=== PATIENT | female | born 1955 | race Caucasian/White ===

== ENCOUNTER 2018-02-20 05:40 | Outpatient (CLI) | payer OTHER ==
[~2018-02-20] VITALS: Ht 165.1 cm; Wt 68.0 kg
[2018-02-20] MEDS ORDERED: OMEP20CA12 PO (12:51)
[2018-02-20] MEDS ORDERED: DULO30CA48 PO (12:51)
[2018-02-20] MEDS ORDERED: TURM538C PO (12:51)
== END 2018-02-20 13:01 | disposition home or self-care (01) ==
LOC: PREOP 05:40
PROVIDERS: ATTEND Surgery
DX: Z01.818 Encounter for other preprocedural examination (principal)

== ENCOUNTER 2018-03-04 06:47 | Day surgery (SDC) | payer OTHER ==
[~2018-03-04] VITALS: Ht 165.1 cm; Wt 68.0 kg
[~2018-03-04 06:47] MED LIST: DULO30CA48 PO; OMEP20CA12 PO; TURM538C PO
[2018-03-04] MEDS ORDERED: NS IV 500 ML 500 ML ONE (07:10)
[2018-03-04] MEDS ORDERED: NS IV 500 ML 500 ML IV PRN (07:10)
[2018-03-04] MEDS ORDERED: fentaNYL INJECTION 100 MCG/2 ML AMP IVP ONE (07:15)
[2018-03-04] MEDS ORDERED: HURRICAINE EXT TUBE (BENZOCAINE) XX PRN (07:15)
[2018-03-04] MEDS ORDERED: MIDAZOLAM 2 MG/2 ML (VERSED) VIAL IVP ONE (07:15)
[2018-03-04 07:26] VITALS: BP 143/80
[2018-03-04] MEDS ORDERED: MIDAZOLAM 2 MG/2 ML (VERSED) VIAL ONE ×4 (07:36→09:21)
[2018-03-04] MEDS ORDERED: fentaNYL INJECTION 100 MCG/2 ML AMP ONE (07:36)
[2018-03-04] MEDS ORDERED: HURRICAINE EXT TUBE (BENZOCAINE) ONE (07:37)
--- NOTE | 2018-03-04 09:12 | Conscious Sedation/ASA ---
Conscious Sedation Pre-Proced Time 09:12 ASA Score 2 For ASA 3 and 4: Consider anesthesia and medical clearance. Also, for patients with a history of failed moderate sedation consider anesthesia. Airway Lungs Heart ASA score ASA 1: a normal healthy patient ASA 2: a patient with a mild systemic disease (mid diabetes, controlled hypertension, obesity ASA 3: a patient with a severe systemic disease that limits activity (angina , COPD, prior Myocardial infarction) ASA 4: a patient with an incapacitating disease that is a constant threat to life (CHF, renal failure) ASA 5: a moribund patient not expected to survive 24 hrs. (ruptured aneurysm) ASA 6: a declared brain patient whose organs are being harvested. For emergent operations, add the letter E after the classification Mallampati Classification Grade 1 Sedation Plan Discussed options with patient/fam The patient is an appropriate candidate to undergo the planned procedure, sedation, and anesthesia. The patient immediately re-assessed prior to indication. NEFTALI RIDDLE MD Mar 04, 2018 09:12
--- NOTE | 2018-03-04 09:12 | History & Physicial ---
History of Present Illness History of Present Illness Reason for visit/HPI to undergo an upper endoscopy with colonoscopy regarding iron deficiency anemia. Previous history of peptic ulcers or than 30 years ago. No family history of colon cancer Date of Admission 03/04/18 Date Seen by a Provider: Mar 04, 2018 Time Seen by a Provider: 09:10 I consulted on this patient on 03/04/18 09:10 Attending Physician Neftali Riddle MD Admitting Physician Sung Zarate MD Consult Allergies and Home Medications Allergies Coded Allergies: amoxicillin (Verified Allergy, Mild, HIVES, 02/20/18) Home Medications Duloxetine HCl 30 Mg Capsule.dr, 30 MG PO DAILY, (Reported) Omeprazole 20 Mg Capsule.dr, 20 MG PO DAILY, (Reported) Turmeric Root Extract 538 Mg Capsule, 538 MG PO DAILY, (Reported) Patient Home Medication List Home Medication List Reviewed: Yes Past Cejsmyf-Ijyzga-Acsvky Hx Patient Social History Marrital Status: Employed/Student: employed Alcohol Use: Denies Use Recreational Drug Use: No Smoking Status: Never a Smoker Recent Foreign Travel: No Contact w/other who traveled: No Recent Hopitalizations: No Recent Infectious Disease Expo: No Immunizations Up To Date Tetanus Booster (TDap): Unknown Seasonal Allergies Seasonal Allergies: Yes Surgeries Gallbladder, Hysterectomy, Tonsillectomy Respiratory No Currently Using CPAP: No Currently Using BIPAP: No Cardiovascular No Neurological No Reproductive System Hx Reproductive Disorders: No Sexually Transmitted Disease: No HIV/AIDS: No Gastrointestinal Yes Gastroesophageal Reflux Musculoskeletal Yes Arthritis, Fibromyalgia HEENT History of HEENT Disorders: No Loss of Vision: Bilateral Hearing Impairment: Denies Psychosocial History of Psychiatric Problem: Yes Behavioral Health Disorders: Depression Integumentary Skin/Integumentary Disorders: Eczema, Psoriasis Blood Transfusions Adverse Reaction to a Blood Tr: Yes (1977) Review of Systems Constitutional: no symptoms reported EENTM: no symptoms reported Respiratory: no symptoms reported Cardiovascular: no symptoms reported Gastrointestinal: no symptoms reported Genitourinary: no symptoms reported Musculoskeletal: no symptoms reported Skin: no symptoms reported Psychiatric/Neurological: No Symptoms Reported Physical Exam Vital Signs Vital Signs - First Documented 03/04/18 07:26 Temp 97.7 Pulse 72 Resp 18 B/P (MAP) 143/80 (101) Pulse Ox 100 O2 Delivery Room Air Capillary Refill : Height, Weight, BMI Height: 5'5.00" Weight: 150lbs. 0.0oz. 68.798061cg; 25.0 BMI Method: General Appearance: No Apparent Distress Respiratory: Lungs Clear Cardiovascular: Regular Rate, Rhythm Gastrointestinal: Non Tender, Soft Rectal: Deferred Extremity: Normal Inspection Neurologic/Psychiatric: Alert, Oriented x3 Skin: Warm/Dry Assessment/Plan Assessment and Plan lady with iron deficiency anemia. Previous history of peptic ulcers. For upper endoscopy with colonoscopy. Admission Diagnosis Admission Status: Other (Outpt Proc) NEFTALI RIDDLE MD Mar 04, 2018 09:12
[2018-03-04 09:40] VITALS: BP 117/68
--- NOTE | 2018-03-04 09:40 | Endo Procedure Record ---
Endo Procedure Report Date of Procedure Last Colonoscopy: Yes (1977) Mar 04, 2018 Surgeon (s) NEFTALI RIDDLE MD Post Procedure/Op Diagnosis EGD: Configuration of gastric bypass. No ulcers Normal colonoscopy Procedure Performed EGD with gastric biopsy for H. pylori Colonoscopy to cecum Description of Procedure Anesthesia Type: Conscious Sedation Specimen(s) collected/removed gastric mucosa for H. pylori Description of the Procedure indication for the procedures: This lady came in for an upper endoscopy with concomitant colonoscopy to evaluate iron deficiency anemia.. In the past, she had undergone gastric bypass to manage morbid obesity. Informed consent was obtained after reviewing the procedures in detail. Description of procedures: EGD/gastric biopsy: She was placed in left lateral decubitus position and her vital signs were monitored. Conscious sedation was achieved using Versed and fentanyl. The flexible gastroscope was introduced down the esophagus, past the gastric pouch into the jejunum. There was no abnormality. A gastric biopsy was obtained for Helicobacter status. She tolerated the procedure well and was turned around in preparation for colonoscopy. Impression: Deficiency anemia. No gastric ulcers. Configuration of gastric bypass. Helicobacter status pending. Colonoscopy: Digital rectal examination was unremarkable. The colonoscope was then introduced into the rectum and advanced all the way up to the cecum. It was then withdrawn slowly and the mucosa examined in a systematic fashion. There was no abnormality. She tolerated the procedures well and was taken to the recovery room in a stable condition. Impression: Iron deficiency anemia. No polyps. NEFTALI RIDDLE MD Mar 04, 2018 09:40
--- NOTE | 2018-03-04 09:41 | Discharge Inst-Simple/Standard ---
Discharge Inst-Standard Discharge Medications New, Converted or Re-Newed RX: Other Patient Instructions/Follow Up Plan of Care/Instructions/FU: follow-up with her primary. Screening colonoscopy in 10 years Activity as Tolerated: Yes Discharge Diet: No Restrictions NEFTALI RIDDLE MD Mar 04, 2018 09:41
[2018-03-04 10:10] VITALS: BP 126/83
[2018-03-04 10:35] VITALS: BP 126/83
== END 2018-03-04 10:35 | disposition home or self-care (01) ==
LOC: ENDO 06:47
PROVIDERS: ATTEND Surgery
DX: D50.9 Iron deficiency anemia, unspecified (principal); K29.70 Gastritis, unspecified, without bleeding; K21.9 Gastro-esophageal reflux disease without esophagitis; M79.7 Fibromyalgia; F32.9 Major depressive disorder, single episode, unspecified; Z98.84 Bariatric surgery status; Z87.11 Personal history of peptic ulcer disease